=== PATIENT | female | born 1960 | race Caucasian/White ===

== ENCOUNTER 2018-04-07 05:46 | Day surgery (SDC) | payer OTHER ==
[2018-04-07] MEDS ORDERED: NEOSTIGMINE 3 MG/3 ML SYRINGE ×2 (07:00→08:49)
[2018-04-07] MEDS ORDERED: GLYCOPYRROLATE 0.4 MG INJ ×2 (07:00→08:49)
[2018-04-07] MEDS ORDERED: DEXTROSE 5% 1,000 ML IV (07:00)
[2018-04-07] MEDS ORDERED: CLINDAMYCIN 900 MG/D5W (PMX) 50 ML IVPB ×2 (07:00→08:04)
[2018-04-07] MEDS ORDERED: PROPOFOL 20 ML (07:23)
[2018-04-07] MEDS ORDERED: MIDAZOLAM 1 MG/ML 2 ML INJ (07:23)
[2018-04-07] MEDS ORDERED: ROCURONIUM 50 MG INJ (07:23)
[2018-04-07] MEDS ORDERED: LIDOCAINE 2% (SDV) 5 ML INJ (07:23)
[2018-04-07 07:42] LABS: ADD MAN DIFF? NO
[2018-04-07 07:46] LABS: BASOPHIL # 0.1 10^3/ul (0.0-0.1); BASOPHILS % 0.8 % (0.0-2.0); EOSINOPHILS # 0.3 10^3/ul (0.0-0.5); EOSINOPHILS % 3.6 % (0.0-7.0); HEMATOCRIT 39.3 % (37.0-47.0); HEMOGLOBIN 13.1 g/dl (12.0-16.0); LYMPHOCYTES # 1.7 10^3/ul (0.8-2.9); LYMPHOCYTES % 23.3 % (15.0-51.0); MEAN CORPUSCULAR HEMOGLOBIN 29.6 pg (29.0-33.0); MEAN CORPUSCULAR HGB CONC 33.3 g/dl (32.0-37.0); MEAN CORPUSCULAR VOLUME 88.9 fl (82.0-101.0); MONOCYTE # 0.7 10^3/ul (0.3-0.9); MONOCYTES % 10.3 % (0.0-11.0); NEUTROPHIL # 4.4 10^3/ul (1.6-7.5); NEUTROPHILS % 61.3 % (39.0-77.0); PLATELET COUNT 182 10^3/UL (140-415); RED BLOOD COUNT 4.42 10^6/ul (4.20-5.40); RED CELL DISTRIBUTION WIDTH 14.7 % (11.5-14.5)
[2018-04-07 07:46] LABS: WHITE BLOOD COUNT 7.2 10^3/ul (4.8-10.8)
[2018-04-07 08:00] LABS: ADD UMIC YES; UR ASCORBIC ACID NEGATIVE (NEGATIVE); UR BACTERIA FEW /HPF (NONE SEEN); UR BILIRUBIN (Dip) NEGATIVE (NEGATIVE); UR BLOOD (Dip) NEGATIVE (NEGATIVE); UR CLARITY SLIGHTLY CLOUDY (CLEAR); UR COLOR YELLOW (YELLOW); UR GLUCOSE (Dip) NEGATIVE (NEGATIVE); UR KETONES (Dip) NEGATIVE (NEGATIVE); UR LEUKOCYTE ESTERASE (Dip) 3+ Leu/ul (NEGATIVE); UR NITRITE (Dip) NEGATIVE (NEGATIVE); UR RBC 5 /HPF (0-5); UR SPECIFIC GRAVITY (Dip) 1.016 (1.003-1.030); UR SQUAMOUS EPITHELIAL CELL FEW /HPF (FEW); UR TOTAL PROTEIN (Dip) NEGATIVE (NEGATIVE); UR UROBILINOGEN (Dip) NEGATIVE (NEGATIVE); UR WBC 44 /HPF (0-5)
[2018-04-07 08:05] LABS: INR 0.92; PROTIME 12.4 Sec (11.9-14.9)
[2018-04-07 08:06] LABS: PARTIAL THROMBOPLASTIN TIME 29.5 Sec (25.0-35.0)
[2018-04-07] MEDS ORDERED: ONDANSETRON 4 MG INJ (08:14)
[2018-04-07] MEDS ORDERED: METOCLOPRAMIDE 10 MG INJ (08:14)
[2018-04-07] MEDS ORDERED: DEXAMETHASONE 4 MG/ML 1 ML INJ (08:15)
[2018-04-07] MEDS ORDERED: LABETALOL HCL 20MG INJ (08:31)
[2018-04-07] MEDS ORDERED: KETOROLAC 30 MG INJ (09:03)
[2018-04-07] MEDS ORDERED: FLUMAZENIL 0.5 MG INJ (09:25)
[2018-04-07] MEDS: LABETALOL HCL 20MG INJ IV (09:30)
[2018-04-07] MEDS ORDERED: HYDROmorphONE 1 MG/5 ML IV SYRINGE IV (09:30)
[2018-04-07] MEDS ORDERED: hydrALAzine 20 MG INJ IV (09:30)
[2018-04-07] MEDS: ALBUTEROL 0.083% (NEB) 2.5 MG/3 ML AMP HHN (09:41)
[2018-04-07] MEDS: KETOROLAC 30 MG INJ IV (10:31)
== END 2018-04-07 11:50 | disposition home or self-care (01) ==
LOC: SDS 05:46
DX: N84.0 Polyp of corpus uteri (principal); L40.9 Psoriasis, unspecified; E66.01 Morbid (severe) obesity due to excess calories; Z68.43 Body mass index [BMI] 50.0-59.9, adult
CPT/HCPCS: 58558; 71045; 81001; 85025; 85610; 85730; 88305; 93005; 94640

== ENCOUNTER 2018-04-20 11:30 | Day surgery (SDC) | payer OTHER, MEDICAID ==
[2018-04-20 12:54] LABS: ADD MAN DIFF? NO
[2018-04-20 12:55] LABS: WHITE BLOOD COUNT 7.1 10^3/ul (4.8-10.8)
[2018-04-20 12:55] LABS: BASOPHIL # 0.1 10^3/ul (0.0-0.1); BASOPHILS % 0.8 % (0.0-2.0); EOSINOPHILS # 0.2 10^3/ul (0.0-0.5); EOSINOPHILS % 3.4 % (0.0-7.0); HEMATOCRIT 39.4 % (37.0-47.0); HEMOGLOBIN 13.2 g/dl (12.0-16.0); LYMPHOCYTES # 1.7 10^3/ul (0.8-2.9); LYMPHOCYTES % 24.3 % (15.0-51.0); MEAN CORPUSCULAR HEMOGLOBIN 29.7 pg (29.0-33.0); MEAN CORPUSCULAR HGB CONC 33.5 g/dl (32.0-37.0); MEAN CORPUSCULAR VOLUME 88.7 fl (82.0-101.0); MEAN PLATELET VOLUME 11.5 fl (7.4-10.4); MONOCYTE # 0.8 10^3/ul (0.3-0.9); MONOCYTES % 10.9 % (0.0-11.0); NEUTROPHIL # 4.2 10^3/ul (1.6-7.5); PLATELET COUNT 200 10^3/UL (140-415); RED BLOOD COUNT 4.44 10^6/ul (4.20-5.40); RED CELL DISTRIBUTION WIDTH 14.2 % (11.5-14.5)
[2018-04-20 13:24] LABS: ANION GAP 13 (8-16); BLOOD UREA NITROGEN 14 mg/dl (7-20); CALCIUM 9.8 mg/dl (8.4-10.2); CARBON DIOXIDE 24 mmol/L (21-31); CHLORIDE 107 mmol/L (97-110); CREATININE 0.84 mg/dl (0.44-1.00); GLUCOSE 111 mg/dl (70-220); POTASSIUM 5.5 mmol/L (3.5-5.1); SODIUM 138 mmol/L (135-144)
[2018-04-20] MEDS ORDERED: ONDANSETRON 4 MG INJ IV (14:30)
[2018-04-20] MEDS ORDERED: LABETALOL HCL 20MG INJ IV (14:30)
[2018-04-20] MEDS ORDERED: hydrALAzine 20 MG INJ IV (14:30)
[2018-04-20] MEDS ORDERED: FENTAnyl 50 MCG/ML VIAL IV ×2 (14:30)
[2018-04-20] MEDS ORDERED: FENTAnyl 50 MCG/ML VIAL (16:40)
[2018-04-20] MEDS ORDERED: MIDAZOLAM 1 MG/ML 2 ML INJ (16:40)
[2018-04-20] MEDS ORDERED: PROPOFOL 20 ML ×2 (16:40)
== END 2018-04-20 16:37 | disposition home or self-care (01) ==
LOC: GIL 11:30
DX: K92.1 Melena (principal); K64.8 Other hemorrhoids
CPT/HCPCS: 45378; 80048; 85025